=== PATIENT | female | born 1990 | race Two or more races ===

== ENCOUNTER 2020-10-28 04:26 | Day surgery (SDC) | payer OTHER ==
[2020-10-28] MEDS ORDERED: PROPOFOL 20 ML ONE ×3 (12:23→12:56)
[2020-10-28] MEDS ORDERED: MIDAZOLAM HCL 2 MG/2 ML SINGLE DOSE VIAL ONE (12:23)
[2020-10-28] MEDS ORDERED: BUPIVACAINE HCL/PF 0.5% (5MG/ML) 10 ML VIAL ONE (12:34)
[2020-10-28] MEDS ORDERED: ceFAZolin 2 GRAM PREMIX BAG IVPB ONE (12:52)
[2020-10-28] MEDS ORDERED: BUPIVACAINE HCL/PF 0.5% (5MG/ML) 10 ML VIAL IJ ONE ×2 (13:03)
[2020-10-28] MEDS ORDERED: ONDANSETRON 4 MG/2 ML VIAL IVPUSH PRN (13:43)
[2020-10-28] MEDS ORDERED: oxyCODONE HCL 5 MG TABLET PO PRN (13:43)
[2020-10-28] MEDS ORDERED: ACETAMINOPHEN 1000 MG/100 ML VIAL (NON FORMULARY) IVPB PRN (13:44)
[2020-10-28] MEDS ORDERED: MEPERIDINE HCL CARPU-JECT 25 MG/1 ML DISP.SYRIN IVPUSH ONE (13:44)
[2020-10-28] MEDS ORDERED: oxyCODONE HCL 5 MG TABLET ONE (17:43)
[2020-10-28 18:25] VITALS: BP 136/78; PULSE 72; TEMP 98
== END 2020-10-28 18:20 | disposition home or self-care (01) ==
LOC: JASU-SURG 04:26
PROVIDERS: ATTEND Surgery
PROC: 0D8R3ZZ Division of Anal Sphincter, Percutaneous Approach (ICD-10-PCS; principal; 2020-10-28 12:00)
DX: K60.1 Chronic anal fissure (principal); K62.89 Other specified diseases of anus and rectum
CPT/HCPCS: 81025; 94760